=== PATIENT | male | born 1945 | race Caucasian/White ===

== ENCOUNTER 2022-06-04 06:51 | Day surgery (SDC) | payer MEDICARE, SELFPAY ==
[2022-06-04 07:05] VITALS: BP 180/88; PULSE 78; RESP 18; TEMP 36.8; O2SAT 98
[2022-06-04] MEDS: Tropicam./Phenyleph. (1/2.5%) 5 ML BTL OD ×3 (07:12→07:22)
--- NOTE | 2022-06-04 07:19 | ANES.PREOP_ITS ---
General Info Date of Service Date Performed: 06/04/22 Height: 5 ft 6.5 in Weight: 83.1 kg Body Mass Index (BMI): 29.1 Surgical Procedure: Operation Date: 06/04/22 08:40 Proposed Procedure Side Surgeon p Cataract Extraction with IOL Implant Right Quentin Hardy MD Meds Allergies and Home Medications Allergies Allergy/AdvReac Type Severity Reaction Status Date / Time No Known Allergies Allergy Unverified 06/04/22 07:02 Home Medication Medication Instructions Recorded aspirin 81 mg tablet,delayed 81 mg PO DAILY 06/02/22 release losartan 50 mg tablet 50 mg PO DAILY 06/02/22 metoprolol succinate 25 mg 25 mg PO DAILY 06/02/22 tablet,extended release 24 hr prednisone 10 mg tablet 10 mg PO DAILY 06/02/22 Current Visit Medications: Current Medications Generic Name Dose Route Start Last Admin Trade Name Freq PRN Reason Stop Dose Admin Acetaminophen 1,000 mg 06/04/22 06:00 Acetaminophen 500 Mg Tab PO Q4H PRN PRN Miscellaneous Medication 0 ml 06/04/22 06:00 Prednisolone 1%, Moxifloxacin 0.5%, Nepafenac 0.1% 5ml Btl OD DIRECTED LISY Miscellaneous Medication 0 ml 06/04/22 06:00 06/04/22 07:17 Tropicam./Phenyleph. (1/2.5%) 5 Ml Btl OD 1 drp DIRECTED LISY Administration Tetracaine HCl 0 ml 06/04/22 06:00 Tetracaine 0.5% 4 Ml Btl OD DIRECTED LISY PFSH Active Problems Active Problems: Problem Status Onset Code Posterior subcapsular age-related cataract, right eye H25.041 Nuclear sclerotic cataract of right eye H25.11 Medical History Medical History Altered mental state Benign essential HTN Chronic kidney failure Former tobacco use quit 1989; 30 yr history Gout Hand pain, left Hand pain, right HLD (hyperlipidemia) Near syncope New onset of congestive heart failure 04/03/22 hospitalized in [place] for CHF x2 days; 07/12/22 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 Swelling Vitreous opacities of right eye Surgical History Surgical History H/O colonoscopy Tobacco Smoking/Tobacco Use Status: Never Alcohol Alcohol Intake: never Substance Use Substance use: Never Substance use type: does not use Vital Signs and Lab Results Vital Signs Most Recent Vital Signs in EMR: Most Recent Vital Signs Temp Pulse Resp BP Pulse Ox 36.8 C 78 18 180/88 H 98 06/04/22 07:05 06/04/22 07:05 06/04/22 07:05 06/04/22 07:05 06/04/22 07:05 Lab Results Blood Type / Crossmatch: No Data to Display Complete Blood Count: No Data to Display Complete Metabolic Panel: No Data to Display Liver Function Panel: No Data to Display Coagulation Panel: No Data to Display Cardiac Panel: No Data to Display Arterial Blood Gas: No Data to Display Venous Blood Gas: No Data to Display Pancreas Panel: No Data to Display Thyroid Panel: No Data to Display Infectious Disease: No Data to Display Blood Cultures: No Data to Display Toxicology Panel: No Data to Display Anesthesia Assessment and Plan Anesthesia History Personal History: No History of Anesthesia Complications Family History: No Family History of Anesthesia Complications Exercise Tolerance Exercise Tolerance: Metabolic Equivalents<4 Pertinent Negatives Pertinent Negatives: No Symptoms of GERD Cardiac & Pulmonary Exam Cardiac Exam: Normal S1/S2 Heart Sounds Pulmonary Exam: Clear Bilateral Breath Sounds Implantable Cardiac Device Does patient have a Pacemaker or an ICD?: No Airway Exam Known Difficult Airway: No Mallampati Class: 2 Mouth Opening: Normal (> 3cm) Thyromental Distance: Greater than 3 cm Neck Range of Motion: Full ROM Neck Circumference: Normal Teeth Condition: Normal Dentition ASA Classification ASA Score: ASA 3 Emergency Case?: No NPO Status NPO Status: NPO Clears >2 hours, Solids >8 hours Anesthesia Plan Resuscitation Status: Full Code Anesthesia Technique: MAC Anesthesia Airway Planned: Natural Airway Monitors Used: Standard Monitors
[2022-06-04 07:20] VITALS: BMI 29.1
[2022-06-04] MEDS: Lidocaine 2% Jelly 6 ML SYR (08:14)
[2022-06-04] MEDS: Tetracaine 0.5% 4 ML BTL OD (08:14)
[2022-06-04] MEDS: Povidone-Iodine Ophth 30 ML BTL (08:15)
[2022-06-04] MEDS: Balanced Salt Soln.-PLUS 500 ML BAG (08:21)
[2022-06-04] MEDS: Duovisc Viscoelastic System EACH 1 EACH (08:21)
--- NOTE | 2022-06-04 08:45 | W.PM.DSUDISC ---
Discharge Plan Disposition Patient Disposition: HOME Condition: Good Discharge Details Attending Provider: Quentin Hardy Primary Care Provider: Unknown,Unknown Home Meds and New Rx's Prescriptions: No Action losartan 50 mg Tablet 50 mg PO DAILY prednisone 10 mg Tablet 10 mg PO DAILY aspirin [Aspir-81] 81 mg Tablet,Delayed Release (Dr/Ec) 81 mg PO DAILY metoprolol succinate 25 mg Tablet Extended Release 24 Hr 25 mg PO DAILY Discharge Instructions Stand Alone Forms: Post-op Topical Cataract, Isaiah Pitts ([facility]) Discharge Orders Discharge Orders: Discharge Order (Routine); Ordered 06/04/22 Ordered By: Quentin Hardy DS: Diagnosis Discharge Diagnosis (1) Posterior subcapsular age-related cataract, right eye: Status: Resolved (2) Nuclear sclerotic cataract of right eye: Status: Resolved
--- NOTE | 2022-06-04 08:46 | W.PM.OP ---
Date of service: 06/04/22 Time of Service: 08:46 Operative Note Operative Note DATE OF PROCEDURE: 06/04/22 PRE-OP DIAGNOSIS: Nuclear/posterior subcapsular cataract, right eye POST-OP DIAGNOSIS: same PROCEDURE: Cataract extraction using phacoemulsification with intraocular lens implant, right eye SURGEON: Quentin Hardy ANESTHESIA TYPE: Local By Surgeon and MAC Refer to Anesthesia Record ESTIMATED BLOOD LOSS: 0 PATHOLOGY: none sent COMPLICATIONS: None Patient was transported to: same day Patient's condition: stable Implants: Moe Clareon [id number] Indications: Progressive decreased vision due to cataract, right eye Procedure Description: CATARACT SURGERY OPERATIVE REPORT PREOPERATIVE DIAGNOSIS: Nuclear/posterior subcapsular cataract, right eye POSTOPERATIVE DIAGNOSIS: Same OPERATION: Cataract extraction using phacoemulsification with posterior chamber intraocular lens implant, right eye. IOL: IOL Rollway Worker/Model: Moe Clareon [id number] IOL Power: + 15.0 diopters IOL Serial Number: [id number] Optic Diameter: 6.0mm Haptic/Overall Diameter: 13.0mm PHACO INFO: Moe [employer]urion Vision System with OZil and Active Fluidics Cumulative Dispersed Energy (CDE): 14.15 seconds SURGEON: Quentin Hardy MD, RHODA ANESTHESIA: Monitored Anesthesia Care (MAC), with local sub-tenon's anesthetic infiltration COMPLICATIONS: None SPECIMENS: None INDICATIONS FOR PROCEDURE: The patient is a 77-year-old male with history of diminished visual acuity in his right eye secondary to the development of significant nuclear/posterior subcapsular cataract. He has a history of high myopia and desires to remain somewhat myopic postoperatively so he can continue to read without correction. The option of cataract surgery was offered to the patient and he wished to proceed. Postoperative refractive target is approximately -2.50 diopters PROCEDURE: The correct surgical eye was identified and marked as the right eye and the pupil was dilated in the preoperative area using mydriatics and cycloplegics. The dilated pupil size was 8.0 mm. Oral sedation was administered in the form of an Imprimis MKO Melt (midazolam 3mg/ketamine 25mg/ondansetron 2mg). The patient was brought to the operating room where cardiopulmonary monitoring was instituted and surgical time-out was performed, confirming the correct operative eye and IOL power. Topical anesthesia was administered and ophthalmic povidone-iodine 5% was instilled into the conjunctival fornices. Lidocaine gel was applied to the cornea and the brittany-ocular area was prepped with Betadine 10% solution and draped in the usual sterile fashion for intraocular surgery, including an aperture drape. A Tegaderm transparent film dressing was cut in half and used to cover the lashes and lid margins. Care was taken to sequester the lashes and lid margins under the Tegaderm dressing. A lid speculum was placed between the lids of the operative eye and the James-Kely operating microscope was maneuvered into position. Deepthi scissors were then used to make a conjunctival buttonhole approximately 6mm posterior to the limbus in the inferonasal quadrant. Blunt dissection was carried out to expose bare sclera, and a blunt-tipped sub-tenon?s anesthesia cannula was introduced and passed posteriorly along the globe where non-preserved plain lidocaine was injected into posterior sub-Tenon?s space. A sideport knife was used to make a paracentesis port inferiortemporally. Intraocular phenylephrine/lidocaine was injected into the anterior chamber. The anterior chamber was then filled with viscoelastic. A keratome knife was used to construct a two--plane near-clear corneal tunnel extending 2.0mm into clear cornea in the superiortemporal position.. A flap was raised on the anterior capsule and capsulorhexis forceps were used to complete a continuous curvilinear capsulorhexis of 5.0 mm. Balanced salt solution was then used to perform cortical cleaving hydrodissection and nuclear hydrodelineation until the lens could be freely rotated within the capsular bag. The lens nucleus was then disassembled and removed within the capsular bag and iris plane using phacoemulsification. Residual cortical material was removed using the I/A handpiece. The posterior capsule was carefully polished to remove as much residual lens epithelial cells as safely possible. The capsular bag was then inflated and the anterior chamber deepened with viscoelastic. The lens implant described above was inserted into the capsular bag using the Moe Autonome Injector. A Kuglen hook was used to dial the IOL into position. Residual viscoelastic was then removed first from posterior to the IOL, then from the anterior chamber using the I/A handpiece. The lens implant was noted to center nicely within the capsular bag. The incisions were stromally hydrated, and the anterior chamber was reformed using BSS. Then 0.5cc of moxifloxacin 1.0mg/ml were injected into the capsular bag and anterior chamber. The incisions were checked with a Weck spear and found to be secure. Several drops of ophthalmic povidone-iodine 5% were then applied to the eye followed by two drops of Imprimis combination prednisolone/moxifloxacin/nepafenac solution. The drapes were removed and a clear plastic protective eye shield was placed over the eye. The patient was then returned to Same Day Surgery in stable condition.
[2022-06-04 08:48] VITALS: BP 148/81; PULSE 70; RESP 18; TEMP 36.4; O2SAT 95
--- NOTE | 2022-06-04 09:03 | W.ANESPOSTOP ---
Postoperative Evaluation Date, Time and Location Date Performed: 06/04/22 Time Performed: 08:55 Patient Location: Day Surgery Unit Vital Signs Most Recent Imported Vital Signs: Most Recent Vital Signs Temp Pulse Resp BP Pulse Ox 36.4 C L 70 18 148/81 H 95 06/04/22 08:48 06/04/22 08:48 06/04/22 08:48 06/04/22 08:48 06/04/22 08:48 Pain Score Most Recent Pain Score: Most Recent Pain Score Pain Level 0 06/04/22 08:48 Assessment Mental Status: Awake (Alert & Oriented to Patient Baseline) Airway and Respiratory Function: Patent airway with normal (patient baseline) respiratory exam Cardiovascular Function: Hemodynamically Stable Hydration Status: Adequately Hydrated Nausea & Vomiting: No Nausea or Vomiting Pain: Pt. Denies Any Pain Peripheral Nerve Block: Patient did not receive a nerve block
[2022-06-04 09:15] VITALS: BP 147/80; PULSE 71; RESP 18; TEMP 36.5; O2SAT 96
== END 2022-06-04 09:24 | disposition home or self-care (01) ==
LOC: SUR 06:51
PROVIDERS: Visit Provider Ophthalmology
PROC: (CPT 66984; principal; 2022-06-04 08:30)
DX: H25.041 Posterior subcapsular polar age-related cataract, right eye (principal); I12.9 Hypertensive chronic kidney disease with stage 1 through stage 4 chronic kidney disease, or unspecified chronic kidney disease; N18.9 Chronic kidney disease, unspecified
CPT/HCPCS: 66984; V2632

== ENCOUNTER 2022-06-18 06:37 | Day surgery (SDC) | payer MEDICARE, SELFPAY ==
[2022-06-18 07:17] VITALS: BP 173/82; PULSE 72; RESP 16; TEMP 36.7; O2SAT 97
[2022-06-18] MEDS: Tropicam./Phenyleph. (1/2.5%) 5 ML BTL OS ×3 (07:28→07:46)
--- NOTE | 2022-06-18 07:35 | W.ANESPRE ---
General Info Date of Service Date Performed: 06/18/22 Height: 5 ft 6.5 in Weight: 81.5 kg Body Mass Index (BMI): 28.5 Surgical Procedure: Operation Date: 06/18/22 08:40 Proposed Procedure Side Surgeon p Cataract Extraction with IOL Implant Left Quentin Hardy MD Meds Allergies and Home Medications Allergies Allergy/AdvReac Type Severity Reaction Status Date / Time No Known Allergies Allergy Verified 06/18/22 07:15 Home Medication Medication Instructions Recorded aspirin 81 mg tablet,delayed 81 mg PO DAILY 06/02/22 release losartan 50 mg tablet 50 mg PO DAILY 06/02/22 metoprolol succinate 25 mg 25 mg PO DAILY 06/02/22 tablet,extended release 24 hr prednisone 10 mg tablet 10 mg PO DAILY 06/02/22 Current Visit Medications: Current Medications Generic Name Dose Route Start Last Admin Trade Name Freq PRN Reason Stop Dose Admin Acetaminophen 1,000 mg 06/18/22 06:00 Acetaminophen 500 Mg Tab PO Q4H PRN PRN Miscellaneous Medication 0 ml 06/18/22 06:00 Prednisolone 1%, Moxifloxacin 0.5%, Nepafenac 0.1% 5ml Btl OS DIRECTED LISY Miscellaneous Medication 0 ml 06/18/22 06:00 06/18/22 07:28 Tropicam./Phenyleph. (1/2.5%) 5 Ml Btl OS 1 drp DIRECTED LISY Administration Tetracaine HCl 0 ml 06/18/22 06:00 Tetracaine 0.5% 4 Ml Btl OS DIRECTED LISY PFSH Active Problems Active Problems: Problem Status Onset Code Posterior subcapsular age-related cataract, right eye H25.041 Nuclear sclerotic cataract of right eye H25.11 Medical History Medical History Altered mental state Benign essential HTN Chronic kidney failure Former tobacco use quit 1989; 30 yr history Gout Hand pain, left Hand pain, right HLD (hyperlipidemia) Near syncope New onset of congestive heart failure 04/03/22 hospitalized in [place] for CHF x2 days; 07/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 Swelling Vitreous opacities of right eye Surgical History Surgical History H/O colonoscopy Tobacco Smoking/Tobacco Use Status: Never Alcohol Alcohol Intake: never Substance Use Substance use: Never Substance use type: does not use Vital Signs and Lab Results Vital Signs Most Recent Vital Signs in EMR: Most Recent Vital Signs Temp Pulse Resp BP Pulse Ox 36.7 C 72 16 173/82 H 97 06/18/22 07:17 06/18/22 07:17 06/18/22 07:17 06/18/22 07:17 06/18/22 07:17 Lab Results Blood Type / Crossmatch: No Data to Display Complete Blood Count: No Data to Display Complete Metabolic Panel: No Data to Display Liver Function Panel: No Data to Display Coagulation Panel: No Data to Display Cardiac Panel: No Data to Display Arterial Blood Gas: No Data to Display Venous Blood Gas: No Data to Display Pancreas Panel: No Data to Display Thyroid Panel: No Data to Display Infectious Disease: No Data to Display Blood Cultures: No Data to Display Toxicology Panel: No Data to Display Anesthesia Assessment and Plan Anesthesia History Personal History: No History of Anesthesia Complications Family History: No Family History of Anesthesia Complications Exercise Tolerance Exercise Tolerance: Metabolic Equivalents<4 Cardiac & Pulmonary Exam Cardiac Exam: Normal S1/S2 Heart Sounds Pulmonary Exam: Clear Bilateral Breath Sounds Implantable Cardiac Device Does patient have a Pacemaker or an ICD?: No Airway Exam Known Difficult Airway: No Mallampati Class: 2 Mouth Opening: Normal (> 3cm) Thyromental Distance: Greater than 3 cm Neck Range of Motion: Full ROM Neck Circumference: Normal Teeth Condition: Normal Dentition ASA Classification ASA Score: ASA 3 Emergency Case?: No NPO Status NPO Status: NPO Clears >2 hours, Solids >8 hours Anesthesia Plan Resuscitation Status: Full Code Anesthesia Technique: MAC Anesthesia Airway Planned: Natural Airway Monitors Used: Standard Monitors
[2022-06-18 07:36] VITALS: BMI 28.5
[2022-06-18] MEDS: Tetracaine 0.5% 4 ML BTL OS (08:22)
[2022-06-18] MEDS: Duovisc Viscoelastic System EACH 1 EACH (08:24)
[2022-06-18] MEDS: Balanced Salt Soln.-PLUS 500 ML BAG (08:24)
[2022-06-18] MEDS: Lidocaine 2% Jelly 6 ML SYR (08:24)
[2022-06-18] MEDS: Povidone-Iodine Ophth 30 ML BTL (08:25)
[2022-06-18 08:45] VITALS: BP 148/75; PULSE 71; RESP 16; TEMP 36.4; O2SAT 97
--- NOTE | 2022-06-18 08:47 | W.PM.DSUDISC ---
Date of service: 06/18/22 Time of Service: 08:47 Discharge Plan Disposition Patient Disposition: HOME Condition: Good Discharge Details Attending Provider: Quentin Hardy Primary Care Provider: Unknown,Unknown Home Meds and New Rx's Prescriptions: No Action losartan 50 mg Tablet 50 mg PO DAILY prednisone 10 mg Tablet 10 mg PO DAILY aspirin [Aspir-81] 81 mg Tablet,Delayed Release (Dr/Ec) 81 mg PO DAILY metoprolol succinate 25 mg Tablet Extended Release 24 Hr 25 mg PO DAILY Discharge Instructions Stand Alone Forms: Post-op Topical Cataract, Isaiah Pitts ([facility]) Discharge Orders Discharge Orders: Discharge Order (Routine); Ordered 06/18/22 Ordered By: Quentin Hardy DS: Diagnosis Discharge Diagnosis (1) Posterior subcapsular age-related cataract of left eye: Status: Resolved (2) Nuclear sclerotic cataract of left eye: Status: Resolved
--- NOTE | 2022-06-18 08:48 | W.PM.OP ---
Date of service: 06/18/22 Time of Service: 08:48 Operative Note Operative Note DATE OF PROCEDURE: 06/18/22 PRE-OP DIAGNOSIS: Nuclear/posterior subcapsular cataract, left eye POST-OP DIAGNOSIS: same PROCEDURE: Cataract extraction using phacoemulsification with intraocular lens implant, left eye SURGEON: Quentin Hardy ANESTHESIA TYPE: Local By Surgeon and MAC Refer to Anesthesia Record PATHOLOGY: none sent COMPLICATIONS: None Patient was transported to: same day Patient's condition: stable Implants: Moe Clareon [id number] Indications: Progressive decreased vision due to cataract, left eye Procedure Description: CATARACT SURGERY OPERATIVE REPORT PREOPERATIVE DIAGNOSIS: Nuclear/posterior subcapsular cataract, left eye POSTOPERATIVE DIAGNOSIS: Same OPERATION: Cataract extraction using phacoemulsification with posterior chamber intraocular lens implant, left eye. IOL: IOL Level Vial Grinder/Model: Moe Clareon [id number] IOL Power: + 16.5 diopters IOL Serial Number: [id number] Optic Diameter: 6.0mm Haptic/Overall Diameter: 13.0mm PHACO INFO: [employer]ion Vision System with OZil and Active Fluidics Cumulative Dispersed Energy (CDE): 21.79 seconds SURGEON: Quentin Hardy MD, RHODA ANESTHESIA: Monitored Anesthesia Care (MAC), with local sub-tenon's anesthetic infiltration COMPLICATIONS: None SPECIMENS: None INDICATIONS FOR PROCEDURE: Patient is a 77-year-old gentleman with a history of diminished visual acuity in both eyes secondary to the development of nuclear/posterior subcapsular cataract. He has a history of myopia. He was significantly symptomatic from cataract that he desired cataract surgery and attempt to improve and maximize his vision. He has already undergone cataract surgery in the right eye with postoperative refractive target of -2.50 diopters. He now presents for cataract surgery in the left eye. PROCEDURE: The correct surgical eye was identified and marked as the left eye and the pupil was dilated in the preoperative area using mydriatics and cycloplegics. The dilated pupil size was 8.0 mm. Oral sedation was administered in the form of an Imprimis MKO Melt (midazolam 3mg/ketamine 25mg/ondansetron 2mg). The patient was brought to the operating room where cardiopulmonary monitoring was instituted and surgical time-out was performed, confirming the correct operative eye and IOL power. Topical anesthesia was administered and ophthalmic povidone-iodine 5% was instilled into the conjunctival fornices. Lidocaine gel was applied to the cornea and the brittany-ocular area was prepped with Betadine 10% solution and draped in the usual sterile fashion for intraocular surgery, including an aperture drape. A Tegaderm transparent film dressing was cut in half and used to cover the lashes and lid margins. Care was taken to sequester the lashes and lid margins under the Tegaderm dressing. A lid speculum was placed between the lids of the operative eye and the Moe [employer] operating microscope was maneuvered into position. Deepthi scissors were then used to make a conjunctival buttonhole approximately 6mm posterior to the limbus in the inferonasal quadrant. Blunt dissection was carried out to expose bare sclera, and a blunt-tipped sub-tenon?s anesthesia cannula was introduced and passed posteriorly along the globe where non-preserved plain lidocaine was injected into posterior sub-Tenon?s space. A sideport knife was used to make a paracentesis port superior/superiortemporally. Intraocular phenylephrine/lidocaine was injected into the anterior chamber. The anterior chamber was then filled with viscoelastic. A keratome knife was used construct a two-plane near-clear corneal tunnel extending 2.0mm into clear cornea in the temporal position. . A flap was raised on the anterior capsule and capsulorhexis forceps were used to complete a continuous curvilinear capsulorhexis of 5.0 mm. Balanced salt solution was then used to perform cortical cleaving hydrodissection and nuclear hydrodelineation until the lens could be freely rotated within the capsular bag. The lens nucleus was then disassembled and removed within the capsular bag and iris plane using phacoemulsification. Residual cortical material was removed using the 45-degree angled silicone I/A tip with 0.3mm port. The posterior capsule was carefully polished to remove as much residual lens epithelial cells as safely possible. The capsular bag was then inflated and the anterior chamber deepened with viscoelastic. The lens implant described above was inserted into the capsular bag using the Moe Autonome Injector. A Kuglen hook was used to dial the IOL into position. Residual viscoelastic was then removed first from posterior to the IOL, then from the anterior chamber using the I/A handpiece. The lens implant was noted to center nicely within the capsular bag. The incisions were stromally hydrated, and the anterior chamber was reformed using BSS. Then 0.5cc of moxifloxacin 1.0mg/ml were injected into the capsular bag and anterior chamber. The incisions were checked with a Weck spear and found to be secure. Several drops of ophthalmic povidone-iodine 5% were then applied to the eye followed by two drops of Imprimis combination prednisolone/moxifloxacin/nepafenac solution. The drapes were removed and a clear plastic protective eye shield was placed over the eye. The patient was then returned to Same Day Surgery in stable condition.
--- NOTE | 2022-06-18 09:01 | W.ANESPOSTOP ---
Postoperative Evaluation Date, Time and Location Date Performed: 06/18/22 Time Performed: 08:50 Patient Location: Day Surgery Unit Vital Signs Most Recent Imported Vital Signs: Most Recent Vital Signs Temp Pulse Resp BP Pulse Ox 36.4 C L 71 16 148/75 H 97 06/18/22 08:45 06/18/22 08:45 06/18/22 08:45 06/18/22 08:45 06/18/22 08:45 Pain Score Most Recent Pain Score: Most Recent Pain Score Pain Level 0 06/18/22 08:45 Assessment Mental Status: Awake (Alert & Oriented to Patient Baseline) Airway and Respiratory Function: Patent airway with normal (patient baseline) respiratory exam Cardiovascular Function: Hemodynamically Stable Hydration Status: Adequately Hydrated Nausea & Vomiting: No Nausea or Vomiting Pain: Pt. Denies Any Pain Peripheral Nerve Block: Patient did not receive a nerve block
[2022-06-18 09:09] VITALS: BP 133/71; PULSE 77; RESP 18; TEMP 36.3; O2SAT 94
== END 2022-06-18 09:17 | disposition home or self-care (01) ==
PROVIDERS: Visit Provider Ophthalmology
PROC: (CPT 66984; principal; 2022-06-18 08:30)
DX: H25.042 Posterior subcapsular polar age-related cataract, left eye (principal); I12.9 Hypertensive chronic kidney disease with stage 1 through stage 4 chronic kidney disease, or unspecified chronic kidney disease; N18.9 Chronic kidney disease, unspecified
CPT/HCPCS: 66984; V2632

== ENCOUNTER → 2022-07-12 12:51 | Outpatient (BNVA) | payer MEDICARE, SELFPAY | PROVIDERS: Visit Provider Internal Medicine Cardiovascular Disease | DX: R60.0 Localized edema (principal); I42.9 Cardiomyopathy, unspecified; I10 Essential (primary) hypertension; N18.30 Chronic kidney disease, stage 3 unspecified | CPT/HCPCS: 93005; 99203 ==

== ENCOUNTER 2022-07-12 13:04 | Outpatient (CLI) | payer MEDICARE, SELFPAY ==
--- NOTE | 2022-07-12 13:00 | RT.EKG_ITS ---
APPROVED REPORT Exam: Resting ECG Reason for Exam: NPW, Baseline needed Patient Location: O HR:71 bpm ECG Measurements Heart Rate 71 AXIS IL 156 P 267 QRSd 88 QRS -31 QT 414 T 133 QTc 450 Conclusion Ectopic atrial rhythm...abnormal P axis, normal rate Left axis deviation...QRS axis (-30,-90) Abnormal T, consider ischemia, lateral leads...T <-0.20mV, I aVL V5 V6
== END 2022-07-12 13:05 | disposition home or self-care (01) ==
LOC: DI.CARD 13:05
PROVIDERS: Visit Provider Internal Medicine Cardiovascular Disease
DX: R55 Syncope and collapse (principal); R94.31 Abnormal electrocardiogram [ECG] [EKG]
CPT/HCPCS: 93010